=== PATIENT | male | born 2000 | race Caucasian/White ===

== ENCOUNTER 2018-04-12 03:44 | Emergency (ER) | payer OTHER ==
[2018-04-12 03:54] VITALS: TEMP 97.5
[2018-04-12] MEDS ORDERED: ONDANSETRON 4 MG/2 ML VIAL IVP STA (04:19)
[2018-04-12] MEDS ORDERED: DIPH,PERTUS(ACELL)TETVAC-LF 0.5 ML VIAL IM ONE (04:19)
[2018-04-12] MEDS ORDERED: SODIUM CHLORIDE 0.9% 500 ML IV STA (04:19)
[2018-04-12] MEDS ORDERED: SODIUM CHLORIDE 0.9% 1,000 ML IV STA (04:19)
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
[2018-04-12 05:38] LABS: Basophils % (A) 0 %; Eosinophils # (A) 0.1 k/uL (0-0.7); Eosinophils % (A) 0 %; HCT 47.3 % (39.0-53.0); HGB 16.6 gm/dL (13.0-17.5); Lymphocytes # (A) 1.4 k/uL (1.0-4.8); Lymphocytes % (A) 9 %; MCH 29.4 pg (25.0-35.0); MCHC 35.1 g/dL (31.0-37.0); MCV 83.9 fL (80.0-100.0); Mean Platelet Volume 8.2; Monocytes # (A) 0.6 k/uL (0-1.0); Monocytes % (A) 4 %; Neutrophils # (A) 13.4 k/uL (1.3-7.7); Neutrophils % (A) 86 %; Platelet Count 261 k/uL (150-450); RBC 5.64 m/uL (4.30-5.90); RDW 12.3 % (11.5-15.5); WBC 15.5 k/uL (4.0-11.0)
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
[2018-04-12 05:39] LABS: Appearance,Urine Clear (Clear); Bilirubin,Urine Negative (Negative); Blood,Urine Negative (Negative); Color,Urine Light Yellow; Glucose,Urine (UA) Negative (Negative); Ketones,Urine Negative (Negative); Leukocyte Esterase,Urine Negative (Negative); Nitrite,Urine Negative (Negative); PH, Urine 5.5 (5.0-8.0); Protein,Urine Negative (Negative); Specific Gravity,Urine 1.007 (1.001-1.035); Urobilinogen,Urine <2.0 mg/dL (<2.0)
[2018-04-12 05:48] LABS: Amphetamine Screen,Urine Detected (NotDetected); Barbiturate Screen,Urine Not Detected (NotDetected); Benzodiazepines Screen,Urine Not Detected (NotDetected); Cocaine Screen,Urine Not Detected (NotDetected); Methadone Screen, Urine Not Detected (NotDetected); Opiate Screen,Urine Not Detected (NotDetected); Oxycodone Screen, Urine Not Detected (NotDetected); Phencyclidine Screen,Urine Not Detected (NotDetected); Tricyclic Antidepressant,Urine Not Detected (NotDetected); Urn Cannabinoid Scrn Detected (NotDetected)
[2018-04-12 05:50] LABS: ALT 36 U/L (21-72); AST 28 U/L (17-59); Albumin 4.4 g/dL (3.5-5.0); Alkaline Phosphatase 50 U/L (38-126); Anion Gap 10 mmol/L; Blood Urea Nitrogen 8 mg/dL (9-20); Calcium 9.2 mg/dL (8.4-10.2); Carbon Dioxide 22 mmol/L (22-30); Chloride 107 mmol/L (98-107); Glucose 104 mg/dL (74-99); INR 1.1 (<1.2); Potassium 4.3 mmol/L (3.5-5.1); Prothrombin Time 10.5 sec (9.0-12.0); Sodium 139 mmol/L (137-145); Total Bilirubin 0.4 mg/dL (0.2-1.3)
[2018-04-12 05:53] LABS: Alcohol 136 mg/dL
[2018-04-12 06:05] LABS: Creatine Kinase 184 U/L (55-170)
[2018-04-12 06:18] LABS: Creatine Kinase MB 0.8 ng/mL (0.0-2.4); Troponin I <0.012 ng/mL (0.000-0.034)
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
[2018-04-12 08:34] VITALS: BP 129/60; PULSE 86; RESP 18
== END 2018-04-12 08:35 | disposition home or self-care (01) ==
LOC: EC 03:44
DX: S00.81XA Abrasion of other part of head, initial encounter (principal); S39.92XA Unspecified injury of lower back, initial encounter; S19.9XXA Unspecified injury of neck, initial encounter; R10.9 Unspecified abdominal pain; D72.829 Elevated white blood cell count, unspecified; R00.0 Tachycardia, unspecified; F17.200 Nicotine dependence, unspecified, uncomplicated; Z90.49 Acquired absence of other specified parts of digestive tract; Z23 Encounter for immunization; Y04.0XXA Assault by unarmed brawl or fight, initial encounter; Y92.89 Other specified places as the place of occurrence of the external cause
CPT/HCPCS: 36415; 93005; 80053; 82550; 82553; 83605; 84484; 85025; 85610; 85730; 81003; 80306; 80320; 72170; 71045; 72125; 70486; 70450; 71260; 74177; 90715; 99285; 96374; 96361 ×3; 90471; J2405; Q9967

== ENCOUNTER → 2020-03-10 | Outpatient (CLI) | payer OTHER ==
--- NOTE | 2020-03-10 10:41 | US ---
EXAMINATION TYPE: US abdomen complete DATE OF EXAM: 03/10/2020 COMPARISON: CT April 12, 2018 CLINICAL HISTORY: R11.10 Morning vomiting. Pt states vomiting x 2 weeks EXAM MEASUREMENTS: Liver Length: 15.3 cm Gallbladder Wall: 0.1 cm CBD: 0.3 cm Spleen: 12.7 cm Right Kidney: 10.3 x 4.8 x 5.6 cm Left Kidney: 11.3 x 5.7 x 5.7 cm Pancreas: Obscured by bowel gas Liver: wnl Gallbladder: wnl Evidence for sonographic Heller's sign: No CBD: wnl Spleen: wnl Right Kidney: wnl Left Kidney: wnl Upper IVC: wnl Abd Aorta: wnl No abnormality visualized to account for pt's vomiting Attempted to call Dr's office at time of exam, no answer The visualized liver is slightly heterogeneous. Mild diffuse fatty infiltration suspected. The intrah epatic portion of the IVC and visualized abdominal aorta are within normal limits. There is no evide nce of cholelithiasis. Common bile duct is unremarkable. Suboptimal evaluation of pancreas on 2 imag es saved secondary to shadowing from overlying bowel gas per technologist. The spleen is unremarkabl e. Kidneys are symmetric and free of hydronephrosis. No renal lesions are seen. IMPRESSION: Suboptimal evaluation of pancreas without acute findings identified.
== END | disposition home or self-care (01) ==
LOC: RADUSWWP 10:01
PROVIDERS: ATTEND Physician Assistant
DX: R11.10 Vomiting, unspecified (principal)
CPT/HCPCS: 76700

== ENCOUNTER → 2020-04-04 | Outpatient (CLI) | payer OTHER ==
--- NOTE | 2020-04-04 16:57 | CT ---
EXAMINATION TYPE: CT abdomen w con DATE OF EXAM: 04/04/2020 COMPARISON: Prior CT 04/12/2018 HISTORY: Vomiting and right upper quadrant abdominal pain. CT DLP: 1728.2 mGycm Automated exposure control for dose reduction was used. TECHNIQUE: Helical acquisition of images was performed from the lung bases through the top of iliac crest to include entire abdomen. CONTRAST: Performed with Oral Contrast and with IV Contrast, patient injected with 100ml mL of Isovue 300. FINDINGS: LUNG BASES: No significant abnormality is appreciated. LIVER/GB: No significant abnormality is appreciated. PANCREAS: No significant abnormality is seen. SPLEEN: No significant abnormality is seen. ADRENALS: No significant abnormality is seen. KIDNEYS: No significant abnormality is seen. BOWEL: No significant abnormality is seen. Patient is post appendectomy. No bowel obstruction. LYMPH NODES: No significant abnormality is appreciated. OSSEOUS STRUCTURES: No significant abnormality is seen. FREE AIR: No Free Air visible ASCITES: None visible. RETROPERITONEAL ADENOPATHY: No Retroperitoneal Adenopathy visible. OTHER: IMPRESSION: NO ABNORMALITY EVIDENT TO ACCOUNT FOR PATIENT'S SYMPTOMS.
== END | disposition home or self-care (01) ==
LOC: RADCTMAIN 15:00
PROVIDERS: ATTEND Internal Medicine
DX: R11.10 Vomiting, unspecified (principal)
CPT/HCPCS: 74160; Q9967

== ENCOUNTER → 2020-11-11 | Outpatient (CLI) | payer OTHER ==
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
== END | disposition home or self-care (01) ==
LOC: RADCTMAIN 08:39
PROVIDERS: ATTEND Orthopaedic Surgery
DX: M85.862 Other specified disorders of bone density and structure, left lower leg (principal)